=== PATIENT | female | born 1940 | race Caucasian/White ===

== ENCOUNTER → 2018-07-15 | Outpatient (CLI) | payer OTHER ==
--- NOTE | 2018-07-25 12:34 | EEG ---
[address] [address] EEG STUDY REPORT Name: FABIAN SCHROEDER Room: [facility]#: [id number] Admission: 07/15/18 Attend Phys: Vic Tijerina MD Discharge: Date of : 40 Report #: [id number] THIS REPORT FOR: //name// CC: Vic Pierre DATE OF SERVICE: 07/15/2018 INDICATION FOR STUDY: This patient had a CVA and an abnormal EEG was found and repeat EEG was done to further evaluate that. DESCRIPTION OF PROCEDURE: The patient's EEG was done by placing the electrode by standard 10-20 system of electrode placement. Both referential and sequential montages were used for recording. Background activity in this patient's EEG is about 9 Hz and 30 microvolt. The patient went to sleep that is associated with bilaterally symmetrical sleep spindle and vertex sharp waves. Photic stimulation is unremarkable. Throughout the record, no active epileptiform activity was noticed. IMPRESSION: This patient's electroencephalogram is unremarkable. Thank you very much for this referral. <ELECTRONICALLY SIGNED> By: Vic Tijerina MD 07/25/18 [id number] Tijerina MD /nt
== END ==
LOC: M.CRD 07-09 13:00
DX: I63.9 Cerebral infarction, unspecified (principal); R94.01 Abnormal electroencephalogram [EEG]